=== PATIENT | female | born 1950 | race Caucasian/White ===

== ENCOUNTER 2023-09-21 08:00 | Outpatient (RCR) | payer MEDICARE, OTHER, SELFPAY ==
[2023-09-21] VITALS (9 sets, daily range): BP systolic 143–180; BP diastolic 52–79; PULSE 73–81; RESP 14–18; TEMP 36.6–37.3; O2SAT 96–100
[2023-09-21] MEDS: 0.9 % SODIUM CHLORIDE 250 ml IV (14:34)
[2023-09-21] MEDS: SODIUM CHLORIDE 0.9 % (FLUSH) 10 ML SYRINGE IVF (14:34)
== END 2024-03-18 23:59 | disposition home or self-care (01) ==
LOC: CCIC 08:00
PROVIDERS: Visit Provider Internal Medicine Hematology & Oncology
DX: D59.5 Paroxysmal nocturnal hemoglobinuria [Marchiafava-Micheli] (principal)
CPT/HCPCS: 36415; 36430; 86850; 86870; 86880; 86900; 86901; 86905; 86906; 86922; J7050; P9016

== ENCOUNTER 2024-05-19 08:45 | Outpatient (RCR) | payer MEDICARE, OTHER, SELFPAY ==
[2024-05-19 08:55] VITALS: BP 149/70; PULSE 72; RESP 16; TEMP 36.5; O2SAT 96
[2024-05-19 09:39] VITALS: BP 149/70; PULSE 72; RESP 16; TEMP 36.5; O2SAT 96
[2024-05-19 09:57] VITALS: BP 149/67; PULSE 68; RESP 18; TEMP 36.6; O2SAT 98
[2024-05-19 10:42] VITALS: BP 165/83; PULSE 67; RESP 16; TEMP 36.8; O2SAT 99
[2024-05-19 11:42] VITALS: BP 164/67; PULSE 66; RESP 18; TEMP 36.9; O2SAT 100
[2024-05-19 13:08] VITALS: BP 147/71; PULSE 75; RESP 16; TEMP 36.6; O2SAT 97
== END 2024-11-14 23:59 | disposition home or self-care (01) ==
LOC: CCIC 08:45
PROVIDERS: Visit Provider Internal Medicine Hematology & Oncology
DX: D59.5 Paroxysmal nocturnal hemoglobinuria [Marchiafava-Micheli] (principal)
CPT/HCPCS: 36415; 36430; 86850; 86870; 86880; 86900; 86901; 86922; P9016